=== PATIENT | female | born 1970 | race Caucasian/White ===

== ENCOUNTER 2024-09-15 18:03 | Outpatient (CLI) | payer MEDICARE, MEDICAID, SELFPAY | END 2024-09-15 18:04 | disposition home or self-care (01) | LOC: AMB 09-29 07:47 | PROVIDERS: Visit Provider Emergency Medicine | DX: R50.9 Fever, unspecified (principal); M54.50 Low back pain, unspecified | CPT/HCPCS: A0425; A0433 ==